=== PATIENT | female | born 1990 | race Caucasian/White ===

== ENCOUNTER 2019-06-18 09:21 | Emergency (ER) | payer SELFPAY ==
--- NOTE | 2019-06-18 10:42 | ED.PDOC ---
History of Present Illness - General Chief Complaint: ENT Problem Stated Complaint: Sore throat, bilat ear pain Time Seen by Provider: 06/18/19 10:39 Source: patient Exam Limitations: no limitations - History of Present Illness Initial Comments: patient comes in today for 1 week history of sore throat and right ear pain. Patient states her throat feels swollen and it hurts to eat or drink anything. Now the pain has moved to her left ear as well. Patient has no sinus pressure or pain. Patient denies any dental pain. Patient has had no fever, chills, cough or nasal congestion. Patient is otherwise healthy and has no past medical history. She is sexually active and is not currently on control. She does not take any medications and has no known drug allergies. Timing/Duration: last week Severity: moderate EENT Location: ear (R), throat Prearrival Treatment: no prearrival treatment Improving Factors: nothing Worsening Factors: eating Associated Symptoms: sore throat Allergies/Adverse Reactions: Allergies NO KNOWN ALLERGY Allergy (Verified 12/14/12 12:34) Home Medications: Ambulatory Orders Amoxicillin 875 mg PO BID #20 tab 06/18/19 Flo/Poly/Hc Otic Susp [Cortisporin Otic Susp] 4 drop OTIC QID #1 bttl 06/18/19 Review of Systems - Review of Systems Constitutional: States: no symptoms reported. Denies: chills, fever EENTM: States: ear pain, throat pain Respiratory: States: no symptoms reported. Denies: cough, short of breath Cardiology: States: no symptoms reported. Denies: chest pain, palpitations Gastrointestinal/Abdominal: States: no symptoms reported. Denies: abdominal pain, diarrhea, nausea, vomiting Genitourinary: States: no symptoms reported Musculoskeletal: States: no symptoms reported Past Medical History (General) - Patient Medical History Hx Stroke: No Hx Cardiac Disorders: No Hx Congestive Heart Failure: No Hx Diabetes: No Hx MRSA: No Surgical History: other - Vaccination History Hx Influenza Vaccination: Yes - 2018 Hx Pneumococcal Vaccination: No - Social History Hx Tobacco Use: No Hx Alcohol Use: No Hx Substance Use: No Hx Physical Abuse: No Hx Emotional Abuse: No Family Medical History - Family History Mother Living Status: Hx Family Diabetes: Yes Physical Exam - Physical Exam General Appearance: Alert, Comfortable, No apparent distress Eye Exam: bilateral normal Ear Exam: right ear: TM red, erythema - canal with pain with movement of pinna, left ear: canal normal, TM normal Nasal Exam: normal inspection Throat Exam: normal mouth inspection, pharynx normal, other - no dental pain, no sinus pain, no pain at mastoid Neck: non-tender, full range of motion, supple, lymphadenopathy (R) Cardiovascular/Respiratory: regular rate, rhythm, no M/R/G, normal peripheral pulses, normal breath sounds, no respiratory distress Abdominal Exam: non-tender Neurologic: alert, oriented x 3 Progress - Results/Orders Results/Orders: 06/18/19 10:56 STREP A SCREEN CULTURE Stat Laboratory Results Group A Strep Rapid Negative (NEGATIVE) 06/18/19 10:56 Departure - Departure Clinical Impression: Otitis externa Qualifiers: Otitis externa type: unspecified type Chronicity: acute Laterality: right Qualified Code(s): H60.501 - Unspecified acute noninfective otitis externa, right ear Otitis media Qualifiers: Otitis media type: serous Chronicity: acute Laterality: right Recurrence: non- recurrent Qualified Code(s): H65.01 - Acute serous otitis media, right ear Disposition: Discharge to Home or Self Care Condition: Good Departure Forms: ED Discharge - Pt. Copy, Patient Portal Self Enrollment Instructions: DI for Ear Pain-Adult Prescriptions: Amoxicillin 875 mg PO BID #20 tab Flo/Poly/Hc Otic Susp [Cortisporin Otic Susp] 4 drop OTIC QID #1 bttl Home Medications: Ambulatory Orders Amoxicillin 875 mg PO BID #20 tab 06/18/19 Flo/Poly/Hc Otic Susp [Cortisporin Otic Susp] 4 drop OTIC QID #1 bttl 06/18/19 Additional Instructions: follow up with PCP in 2-3 days if not improving. Return to ER for altered LOC, severe increase in symptoms
[2019-06-18 11:03] VITALS: BP 114/88
[2019-06-18 11:26] VITALS: TEMP 99; O2SAT 98
== END 2019-06-18 11:22 | disposition home or self-care (01) ==
LOC: ER 09:21
DX: H60.501 Unspecified acute noninfective otitis externa, right ear (principal); H65.01 Acute serous otitis media, right ear; J02.9 Acute pharyngitis, unspecified